=== PATIENT | female | born 1975 | race Caucasian/White ===

== ENCOUNTER 2018-07-08 08:15 | Outpatient (REF) | payer OTHER, SELFPAY ==
[2018-07-08 15:15] LABS: Cholesterol 198 mg/dL (50-200); Glucose 89 mg/dL (70-100); HDL Cholesterol 48 mg/dL (40-60); LDL CHOLESTEROL 129 mg/dL (<100); Triglyceride 79 mg/dL (30-150)
== END 2018-07-08 08:35 ==
LOC: NCHCN 08:15
PROVIDERS: PCP Nurse Practitioner Family; Visit Provider Nurse Practitioner Family
DX: Z00.00 Encounter for general adult medical examination without abnormal findings (principal); Z13.1 Encounter for screening for diabetes mellitus; Z13.220 Encounter for screening for lipoid disorders
CPT/HCPCS: 80061; 82947; 83721

== ENCOUNTER 2018-11-20 11:25 | Outpatient (REF) | payer OTHER, SELFPAY ==
--- NOTE | 2018-11-20 10:15 | PAPFT_PTH ---
PATIENT: OUSMANE AU LOC: [facility] U#:[id number] AGE/SX: 43/F ROOM: RE11/20/[address]: YADIRA De Leon : 1975 BED: DIS: 11/20/2018 SPEC #: [id number] RECD: 11/20/18 12:56 STATUS: AIRAM RECamilla #: [id number] GAL: 11/20/18 10:[address]: Katlin Swenson DEPT: [facility] Cytology RECD BY: Debi Maxwell ENTERED: 11/20/18 12:56 SP TYPE: PAPFT GALINDO DR: Jayde Woods Tissues: 1 - CX/ENDOCX FOR PAP SMEARS Procedures: PAP THIN PREP/[facility] Screening HPV DNA PROBE Comments: [id number]
== END 2018-11-20 11:45 ==
LOC: LBN 11:25
PROVIDERS: PCP Nurse Practitioner Family; Visit Provider Nurse Practitioner Family
DX: Z12.4 Encounter for screening for malignant neoplasm of cervix (principal); Z11.51 Encounter for screening for human papillomavirus (HPV)
CPT/HCPCS: 88142; 87624

== ENCOUNTER 2019-11-06 18:53 | Outpatient (REF) | payer OTHER, SELFPAY ==
[2019-11-10 05:37] LABS: SARS-CoV-2 RNA Undetected (Undetected)
== END 2019-11-06 19:13 ==
LOC: NCHCN 18:53
PROVIDERS: PCP Nurse Practitioner Family; Visit Provider Nurse Practitioner Family
DX: Z20.828 Contact with and (suspected) exposure to other viral communicable diseases (principal)
CPT/HCPCS: U0003